=== PATIENT | female | born 1945 | race Caucasian/White ===

== ENCOUNTER → 2019-07-21 12:49 | Outpatient (CLI) | payer MEDICARE, OTHER, SELFPAY ==
[2019-07-21 13:18] LABS: Basophils % 0.5 % (0.1-2.0); Eosinophils # 0.2 K/mm3 (0.0-0.4); Eosinophils % 3.2 % (0.1-12.0); Hematocrit 42.3 % (37.0-47.0); Hemoglobin 12.4 g/dL (12.2-16.2); Lymphocytes # 0.8 K/mm3 (0.7-4.5); Lymphocytes % 11.7 % (10-50); Mean Corpuscular HGB Conc 29.4 g/dL (31.8-35.4); Mean Corpuscular Hemoglobin 25.5 pg (27.0-31.2); Mean Corpuscular Volume 86.8 fl (81-99); Mean Platelet Volume 7.7 fl (7.4-10.4); Monocytes # 0.4 K/mm3 (0.1-1.0); Monocytes % 6.3 % (1.7-9.3); Neutrophils # 5.1 K/mm3 (1.8-7.8); Neutrophils % 78.4 % (37.0-80.0); Platelet Count 365 K/mm3 (142-424); Red Blood Count 4.87 M/mm3 (4.20-5.40); Red Cell Distribution Width 15.3 % (11.5-17.5); White Blood Count 6.5 K/mm3 (4.8-10.8)
[2019-07-21 15:55] LABS: Alanine Aminotransferase 20 U/L (12-78); Albumin Level 3.5 gm/dL (3.4-5.0); Albumin/Globulin Ratio 0.9 (1.1-1.8); Alkaline Phosphatase 116 U/L (46-116); Aspartate Amino Transferase 20 U/L (15-37); Bilirubin,Total 0.4 mg/dL (0.2-1.0); Blood Urea Nitrogen 22 mg/dL (7-18); Carbon Dioxide 26 mmol/L (21.0-32.0); Chloride 104 mmol/L (98-107); Chol/HDL Ratio 3.5 (1-3.5); Cholesterol 215 mg/dL (140-200); Creatinine,Serum 1.18 mg/dL (0.55-1.02); Estimated Glomerular Filt Rate 45 ml/min (>60); Free Thyroxine Index 2.7 ug/dL (5.93-13.13); GFR (African American) 54 ML/MIN (>60); Globulin 3.7 gm/dl (1.3-3.2); Glucose 103 mg/dL (74-106); HDL Cholesterol 61 mg/dL (29-89); LDL Cholesterol 121 mg/dL (0-130); Magnesium 2.1 mg/dL (1.4-2.2); Sodium 139 mmol/L (136-145); T4 (Thyroxine) 7.6 ug/dl (4.7-13.3); Thyroid Stimulating Hormone 1.81 uIU/ml (0.358-3.740); Total Protein,Serum 7.2 gm/dL (6.4-8.2); Triglycerides 166 mg/dL (30-200); Triiodothryronine (T3) Uptake 36 % (31-39); VLDL Cholesterol 33 mg/dL (0-40)
== END ==
PROVIDERS: Visit Provider Internal Medicine Adolescent Medicine
DX: R06.09 Other forms of dyspnea (principal); I10 Essential (primary) hypertension; R63.4 Abnormal weight loss
CPT/HCPCS: 36415; 80053; 80061; 83735; 84436; 84443; 84479; 85025

== ENCOUNTER 2021-07-21 18:24 | Observation (INO) | payer OTHER, MEDICARE, SELFPAY ==
[2021-07-21] VITALS (10 sets, daily range): BP systolic 130–178; BP diastolic 48–97; PULSE 60–91; RESP 19–20; TEMP 36.5–36.8; O2SAT 98–100; BMI 26.4
[2021-07-21 16:45] LABS: Basophils % 0.3 % (0.1-2.0); Eosinophils # 0.1 K/mm3 (0.0-0.4); Eosinophils % 1.2 % (0.1-12.0); Lymphocytes # 0.7 K/mm3 (0.7-4.5); Lymphocytes % 8.3 % (10-50); Mean Corpuscular HGB Conc 25.3 g/dL (31.8-35.4); Mean Corpuscular Hemoglobin 19.4 pg (27.0-31.2); Mean Corpuscular Volume 76.4 fl (81-99); Mean Platelet Volume 8.9 fl (7.4-10.4); Monocytes # 0.5 K/mm3 (0.1-1.0); Neutrophils # 6.6 K/mm3 (1.8-7.8); Neutrophils % 84.3 % (37.0-80.0); Platelet Count 527 K/mm3 (142-424); Red Blood Count 2.45 M/mm3 (4.20-5.40); Red Cell Distribution Width 17.6 % (11.5-17.5); White Blood Count 7.9 K/mm3 (4.8-10.8)
[2021-07-21 17:00] LABS: Hemoglobin 4.7 g/dL (12.2-16.2)
[2021-07-21 17:01] LABS: Hematocrit 18.7 % (37.0-47.0)
[2021-07-21 17:56] LABS: Anion Gap 16.9 mEq/L (5-15); Blood Urea Nitrogen 44 mg/dl (7-17); Calcium 8.9 mg/dl (8.4-10.2); Carbon Dioxide 16 mmol/L (22.0-30.0); Chloride 105 mmol/L (98-107); Estimated Glomerular Filt Rate 27 ml/min (>60); GFR (African American) 33 ML/MIN (>60); Glucose 158 mg/dl (74-100); Potassium 5.9 mmoL/L (3.5-5.1); Sodium 132 mmol/L (136-145)
--- NOTE | 2021-07-21 18:13 | PC.NURSE ---
Received report from ANIL Renee at [place]
[2021-07-22] VITALS (27 sets, daily range): BP systolic 143–184; BP diastolic 56–99; PULSE 65–99; RESP 18–22; TEMP 36.7–37.3; O2SAT 79–100; BMI 26.4
--- NOTE | 2021-07-22 07:21 | P.CONPHA_ITS ---
[facility] Pharmacy VTE Monitoring - Patient Demographics Admission date: 07/21/21 Report Date: 07/22/21 Time: 07:21 Allergies/Adverse Reactions: Patient Allergies No Known Allergies Allergy (Verified 07/21/21 19:03) Height: 1.63 m Weight: 70.307 kg - VTE Risk Labs: VTE Related Lab Results Hgb 4.7 g/dL (12.2-16.2) L* 07/21/21 13:55 Hct 18.7 % (37.0-47.0) L* 07/21/21 13:55 Plt Count 527 K/mm3 (142-424) H 07/21/21 13:55 BUN 44 mg/dl (7-17) H 07/21/21 13:55 Creatinine 1.80 mg/dl (0.52-1.04) H 07/21/21 13:55 - Prophylaxis VTE Prophylaxis Ordered?: Yes Types of VTE Prophylaxis: TEDS Knee High Location of Applied Device: Bilateral Lower Extremeties
--- NOTE | 2021-07-22 07:30 | HMH.HPDC ---
General - General Admission date:: 07/21/21 Discharge date: 07/22/21 *Admission Date: 07/21/21 *Chief complaint: Anemia *History of present illness: Ms. Rivero is a 75-year-old female with extensive history of Alzheimer's, peripheral artery disease, history of lung cancer status post lobectomy, CHF, and longstanding anemia. She was directly admitted from her jail yesterday ([place]) for worsening anemia. Patient has been having some fatigue. Slight increase in oxygen requirement from baseline. Has received 2 units of red blood cells overnight without incident. [place] catheter was placed to help with urine output overnight given diuresis between unit 1 and 2 of blood. Sitting upright on the edge of bed this morning on exam eating breakfast. Denies any nausea, vomiting. Pleasantly demented. No chest pain or worsening shortness of breath. [facility] History I have reviewed the patient's past medical history: Yes Medical History: Reports:: Congestive Heart Failure, Dementia, Peripheral Artery Disease *Have you ever received a pneumonia vaccine?: Yes *Have you received a flu vaccine this season?: Yes Other Medical History: Reports: Anemia Comment:: CKD - *Social History Smoking Status: Unknown if ever smoked Alcohol Intake: never *Occupational Status:: retired Housing: assisted living facility *Travel in the last 8 weeks: None Family Hx:: Unable to obtain Review of Systems - Review of Systems Review of systems:: pertinent systems reviewed and negative unless documented below (14 point review of systems performed, pertinent positives and negatives as per HPI) Exam Vital signs and Labs for Last 24 Hours: Temp Pulse Resp BP Pulse Ox 98.3 F 67 20 169/90 H 98 07/22/21 06:40 07/22/21 06:40 07/22/21 06:40 07/22/21 06:40 07/22/21 06:40 Laboratory Results - last 24 hr 07/21/21 13:55: WBC 7.9, RBC 2.45 L, Hgb 4.7 L*, Hct 18.7 L*, MCV 76.4 L, MCH 19.4 L, MCHC 25.3 L, RDW 17.6 H, Plt Count 527 H, MPV 8.9, Neut % (Auto) 84.3 H, Lymph % (Auto) 8.3 L, [place] % (Auto) 6.0, Eos % (Auto) 1.2, Baso % (Auto) 0.3, Neut # (Auto) 6.6, Lymph # (Auto) 0.7, [place] # (Auto) 0.5, Eos # (Auto) 0.1, Baso # (Auto) 0.0 07/21/21 13:55: Sodium 132 L, Potassium 5.9 H, Chloride 105, Carbon Dioxide 16 L, Anion Gap 16.9 H, BUN 44 H, Creatinine 1.80 H, Estimated GFR 27 L, Est GFR ( Amer) 33 L, Glucose 158 H, Calcium 8.9 07/21/21 19:26: Blood Type B Positive, Antibody Screen Negative, Crossmatch (AHG) See Detail 07/21/21 19:26: Blood Type Confirm B Positive I & O for Last 24 hours: Intake & Output 07/19/21 07/20/21 07/21/21 07/22/21 23:59 23:59 23:59 23:59 Intake Total 0 / 0 250 / 250 Balance 0 / 0 250 / 250 Weight 70.035 kg 70.307 kg - Constitutional no acute distress - *Routine HEENT Exam Head: Present: normocephalic Eye: Present: EOMI, PERRL ENT: Present: mucous membranes moist - *Routine Neck Exam Present: supple. Absent: lymphadenopathy - *Routine Respiratory Exam Present: CTA bilaterally - *Routine Cardiovascular Exam Present: RRR - *Routine Abdominal Exam Present: soft, normoactive bowel sounds. Absent: tenderness - *Routine Rectal Exam Rectal:: deferred - *Routine Genitalia Exam Genitalia:: deferred - *Routine Extremities Exam Absent: cyanosis, clubbing, edema - *Routine Skin Exam Present: warm. Absent: rash - *Routine Neurological Exam Present: alert. Absent: facial asymmetry Oriented to person. Hospital Course Hospital Course: 75-year-old female with recurrent anemia. Levels been stable for quite some time but was noted on recent labs to have worsening anemia and fatigue. Admitted for transfusion. Also noted to have acute kidney injury that is improved with volume repletion. Medically stable throughout admission. Diuresed between units of blood due to CHF history. Oxygen requirement. With no adverse events, hemoglobin at goal greater than 7, and improvement in ki
--- NOTE | 2021-07-22 07:37 | HMH.PHAINT ---
MEDICATION RECONCILIATION COMPLETED ON PATIENT USING MAR FROM [facility]. -SUSANNA LARSON, CATHIED
--- NOTE | 2021-07-22 07:51 | PC.NURSE ---
Pt alert to self. Has been anxious and confused t/o night. She also c/o urgency with urination and wanted to get up to [facility] repeatedly. Pt was assessed for urgency and urine retention. F/C placed. Total urine output was 2000 ml for shift. was notified of pt status. New orders received and carried out. 2 units of blood was transfused with IV Lasix between units. Pt tolerated well. BP has been elevated. No other concerns. Will continue to monitor.
[2021-07-22 08:18] LABS: Chloride 104 mmol/L (98-107); Sodium 136 mmol/L (136-145)
[2021-07-22 08:21] LABS: Alanine Aminotransferase 20 U/L (12-78); Albumin Level 4.1 g/dl (3.5-5.0); Albumin/Globulin Ratio 1.5 (1.1-1.8); Alkaline Phosphatase 84 U/L (38-126); Aspartate Amino Transferase 41 U/L (14-36); Bilirubin,Total 1.2 mg/dl (0.2-1.3); Blood Urea Nitrogen 46 mg/dl (7-17); Calcium 9.6 mg/dl (8.4-10.2); Carbon Dioxide 19 mmol/L (22.0-30.0); Creatinine Clearance Estimated 35 mL/min (50-200); Estimated Glomerular Filt Rate 34 ml/min (>60); GFR (African American) 41 ML/MIN (>60); Globulin 2.8 g/dL (1.3-3.2); Glucose 183 mg/dl (74-100); Total Protein,Serum 6.9 g/dl (6.3-8.2)
[2021-07-22 08:22] LABS: Basophils # 0.1 K/mm3 (0-0.2); Basophils % 0.6 % (0.1-2.0); Eosinophils # 0.1 K/mm3 (0.0-0.4); Eosinophils % 1.7 % (0.1-12.0); Lymphocytes # 0.9 K/mm3 (0.7-4.5); Lymphocytes % 11.9 % (10-50); Mean Corpuscular HGB Conc 30.1 g/dL (31.8-35.4); Mean Corpuscular Hemoglobin 23.8 pg (27.0-31.2); Mean Corpuscular Volume 79.1 fl (81-99); Mean Platelet Volume 9.1 fl (7.4-10.4); Monocytes # 0.4 K/mm3 (0.1-1.0); Monocytes % 4.7 % (1.7-9.3); Neutrophils # 6.1 K/mm3 (1.8-7.8); Platelet Count 485 K/mm3 (142-424); Red Blood Count 4.05 M/mm3 (4.20-5.40); White Blood Count 7.5 K/mm3 (4.8-10.8)
[2021-07-22 09:03] LABS: Hemoglobin 9.6 g/dL (12.2-16.2)
--- NOTE | 2021-07-22 10:22 | SW/DCPLANNER ---
This patient currently resides at [facility] unit w/ Hospice services. I have updated/faxed patient information to Bridget at [facility] and AD w/ Hospice. The plan is for this patient to return to [facility] today.
[2021-07-22 10:56] LABS: Microscopic, Urine URINE MICROSCOPIC (MICROSCOPIC)
[2021-07-22 12:28] LABS: Appearance,Urine CLEAR (Clear); Bilirubin,Urine Negative (Negative); Blood, Urine Negative (Negative); Color,Urine YELLOW (Yellow); Glucose,Urine (UA) Negative (Negative); Ketones,Urine Negative (Negative); Leukocyte Esterase,Urine Negative (Negative); Nitrate,Urine Negative (Negative); Protein,Urine Negative (Negative); Urobilinogen,Urine 0.2 EU/dl (0.2)
[2021-07-22 12:52] LABS: Hematocrit 36.7 % (37.0-47.0)
[2021-07-22 13:03] LABS: Hemoglobin 11.4 g/dL (12.2-16.2)
--- NOTE | 2021-07-22 14:40 | PC.NURSE ---
patient off floor and [facility] personnel here to pick patient up in bus. d/c papers given. no distress noted in patient
== END 2021-07-22 14:40 ==
LOC: 2ND 18:24
PROVIDERS: Internal Medicine Adolescent Medicine; Nurse Practitioner Family; Admitting Provider Internal Medicine Adolescent Medicine; PCP Internal Medicine Adolescent Medicine; Visit Provider Internal Medicine Adolescent Medicine
DX: N17.9 Acute kidney failure, unspecified (principal); N18.9 Chronic kidney disease, unspecified; D63.1 Anemia in chronic kidney disease; G30.9 Alzheimer's disease, unspecified; F02.80 Dementia in other diseases classified elsewhere, unspecified severity, without behavioral disturbance, psychotic disturbance, mood disturbance, and anxiety; F01.50 Vascular dementia, unspecified severity, without behavioral disturbance, psychotic disturbance, mood disturbance, and anxiety; I73.9 Peripheral vascular disease, unspecified; J44.9 Chronic obstructive pulmonary disease, unspecified
CPT/HCPCS: G0378; 36415; 80048; 80053; 81001; 83735; 85014; 85018; 85025; 86850; C9803; P9016; U0003; U0005

== ENCOUNTER 2021-09-17 08:41 | Outpatient (CLI) | payer OTHER, MEDICARE, SELFPAY ==
[2021-09-17] VITALS (19 sets, daily range): BP systolic 111–164; BP diastolic 63–102; PULSE 66–92; RESP 18–20; TEMP 36.2–36.6; O2SAT 98–100; BMI 29.2
[2021-09-17 09:27] LABS: Hematocrit 24.2 % (37.0-47.0); Hemoglobin 7.1 g/dL (12.2-16.2)
--- NOTE | 2021-09-17 10:58 | PC.NURSE ---
1055-BLOOD TRANSFUSION STARTED AT 100 ML/HR AT THIS TIME.
--- NOTE | 2021-09-17 12:02 | PC.NURSE ---
RATE INCREASED TO 150 ML/HR AT 1125 THEN INCREASED TO 200 ML/HR AT 1155.
--- NOTE | 2021-09-17 13:40 | PC.NURSE ---
BLOOD TRANSFUSION STARTED AT 100 ML/HR AT 1320. AT 1325 PT WAS UP TO BSC AND PT TOOK BP CUFF OFF ARM SO DID NOT OBTAIN BP OR PULSE.
--- NOTE | 2021-09-17 14:57 | PC.NURSE ---
1300 - GAVE LASIX 40MG IVP OVER 2 MIN AT THIS TIME.
--- NOTE | 2021-09-17 14:59 | PC.NURSE ---
1350 - INCREASED RATE TO 150 ML/HR AT THIS TIME.
--- NOTE | 2021-09-17 15:01 | PC.NURSE ---
1420 - INCREASED RATE TO 200 ML/HR AT THIS TIME.
[2021-09-17 16:24] LABS: Hemoglobin 10.3 g/dL (12.2-16.2)
== END 2021-09-17 16:10 | disposition home or self-care (01) ==
LOC: INF 08:44
PROVIDERS: PCP Internal Medicine Adolescent Medicine; Visit Provider Internal Medicine Adolescent Medicine
DX: D64.9 Anemia, unspecified (principal)
CPT/HCPCS: 36430; 85014; 85018; 86850; P9016

== ENCOUNTER → 2022-05-11 07:23 | Outpatient (CLI) | payer MEDICARE, OTHER, SELFPAY ==
[2022-05-11 07:45] LABS: Hematocrit 29.2 % (37.0-47.0); Hemoglobin 8.9 g/dL (12.2-16.2)
== END ==
PROVIDERS: PCP Internal Medicine Adolescent Medicine; Visit Provider Internal Medicine Adolescent Medicine
DX: D64.9 Anemia, unspecified (principal)
CPT/HCPCS: 85014; 85018

== ENCOUNTER 2022-12-17 08:33 | Outpatient (CLI) | payer MEDICARE, OTHER, SELFPAY ==
[2022-12-17] VITALS (11 sets, daily range): BP systolic 146–164; BP diastolic 72–98; PULSE 70–86; RESP 18; TEMP 36.8–37.2; O2SAT 95–96; BMI 28.8
[2022-12-17 09:00] LABS: Basophils % 0.1 % (0.1-2.0); Eosinophils # 0.1 K/mm3 (0.0-0.4); Hematocrit 29.6 % (37.0-47.0); Hemoglobin 8.4 g/dL (12.2-16.2); Lymphocytes # 0.3 K/mm3 (0.7-4.5); Lymphocytes % 4.9 % (10-50); Mean Corpuscular HGB Conc 28.5 g/dL (31.8-35.4); Mean Corpuscular Hemoglobin 24.7 pg (27.0-31.2); Mean Corpuscular Volume 86.5 fl (81-99); Mean Platelet Volume 8.3 fl (7.4-10.4); Monocytes # 0.3 K/mm3 (0.1-1.0); Monocytes % 4.5 % (1.7-9.3); Neutrophils # 5.6 K/mm3 (1.8-7.8); Neutrophils % 88.4 % (37.0-80.0); Platelet Count 506 K/mm3 (142-424); Red Blood Count 3.42 M/mm3 (4.20-5.40); Red Cell Distribution Width 17.4 % (11.5-17.5); White Blood Count 6.3 K/mm3 (4.8-10.8)
[2022-12-17 09:04] LABS: MANUAL DIFFERENTIAL MANUAL DIFFERENTIAL (MANUAL DIFF)
[2022-12-17 09:32] LABS: Eosinophils % 2 % (0-3); Lymphocytes % 5 % (10-50); Monocytes % 5 % (2-9); Neutrophils % 88 % (42-76); Total Cells Counted 100
[2022-12-17 09:33] LABS: Hypochromasia 1+; Platelet Estimate Slight Increase
[2022-12-17 09:35] LABS: Ovalocytes 1+; Poikilocytosis 1+
--- NOTE | 2022-12-17 11:14 | PC.NURSE ---
at 0928, spoke to client services assistant in Ana Euceda's office about rechecked hgb of 8.4. EVELYN Euceda gave verbal order to change order to 1 unit of PRBC based on most recent H&H.
== END 2022-12-17 13:15 | disposition home or self-care (01) ==
LOC: INF 08:35
PROVIDERS: PCP Internal Medicine Adolescent Medicine; Visit Provider Nurse Practitioner Family
DX: D64.9 Anemia, unspecified (principal)
CPT/HCPCS: 36430; 85007; 85025; 86850; P9016

== ENCOUNTER → 2023-07-01 22:32 | Outpatient (CLI) | payer MEDICARE, OTHER, SELFPAY ==
[2023-07-01 23:06] LABS: Hematocrit 43.9 % (37.0-47.0); Hemoglobin 14.9 g/dL (12.2-16.2)
== END ==
PROVIDERS: PCP Internal Medicine Adolescent Medicine; Visit Provider Internal Medicine Adolescent Medicine
DX: D64.9 Anemia, unspecified (principal)
CPT/HCPCS: 85014; 85018

== ENCOUNTER → 2023-08-12 02:11 | Outpatient (CLI) | payer MEDICARE, OTHER, SELFPAY ==
[2023-08-12 02:28] LABS: Microscopic, Urine URINE MICROSCOPIC (MICROSCOPIC)
[2023-08-12 02:37] LABS: Appearance,Urine CLEAR (Clear); Blood, Urine Negative (Negative); Color,Urine YELLOW (Yellow); Glucose,Urine (UA) Negative (Negative); Ketones,Urine Negative (Negative); Leukocyte Esterase,Urine Negative (Negative); Nitrate,Urine Negative (Negative); Protein,Urine Negative (Negative); Specific Gravity, Urine >= 1.030 (1.005-1.030); Urobilinogen,Urine 0.2 EU/dl (0.2)
[2023-08-12 02:42] LABS: Bilirubin,Urine 1+ (Negative)
[2023-08-12 03:20] LABS: Squamous Epithelial Cell,Urine Occasional #/hpf (0-5)
== END ==
PROVIDERS: PCP Internal Medicine Adolescent Medicine; Visit Provider Internal Medicine Adolescent Medicine
DX: N39.0 Urinary tract infection, site not specified (principal)
CPT/HCPCS: 81001

== ENCOUNTER → 2023-09-06 12:52 | Outpatient (CLI) | payer OTHER, MEDICARE, SELFPAY ==
[2023-09-06 13:35] LABS: Basophils % 0.1 % (0.1-2.0); Eosinophils # 0.3 K/mm3 (0.0-0.4); Eosinophils % 4.3 % (0.1-12.0); Hematocrit 45.1 % (37.0-47.0); Hemoglobin 15.4 g/dL (12.2-16.2); Lymphocytes # 0.6 K/mm3 (0.7-4.5); Lymphocytes % 7.2 % (10-50); Mean Corpuscular HGB Conc 34.2 g/dL (31.8-35.4); Mean Corpuscular Hemoglobin 32.7 pg (27.0-31.2); Mean Corpuscular Volume 95.8 fl (81-99); Mean Platelet Volume 7.9 fl (7.4-10.4); Monocytes # 0.5 K/mm3 (0.1-1.0); Monocytes % 6.7 % (1.7-9.3); Neutrophils # 6.5 K/mm3 (1.8-7.8); Neutrophils % 81.7 % (37.0-80.0); Platelet Count 246 K/mm3 (142-424); Red Blood Count 4.71 M/mm3 (4.20-5.40); Red Cell Distribution Width 13.2 % (11.5-17.5)
[2023-09-06 14:04] LABS: Anion Gap 12.5 mEq/L (5-15); Blood Urea Nitrogen 28 mg/dl (7-17); Calcium 9.2 mg/dl (8.4-10.2); Carbon Dioxide 28 mmol/L (22.0-30.0); Chloride 101 mmol/L (98-107); Estimated Glomerular Filt Rate 43 ml/min (>60); GFR (African American) 52 ML/MIN (>60); Glucose 135 mg/dl (74-100); Potassium 4.5 mmoL/L (3.5-5.1); Sodium 137 mmol/L (136-145)
== END ==
PROVIDERS: PCP Internal Medicine Adolescent Medicine; Visit Provider Nurse Practitioner Family
DX: R79.9 Abnormal finding of blood chemistry, unspecified; G30.1 Alzheimer's disease with late onset
CPT/HCPCS: 80048; 85025